=== PATIENT | female | born 1985 | race Caucasian/White ===

== ENCOUNTER 2019-01-23 17:05 | Observation (INO) ==
[~2019-01-23 17:05] MED LIST: METOCLOPRAMIDE 10 MG TABLET ONE
[2019-01-23] MEDS ORDERED: IOPAMIDOL 100 ML BOTTLE IV ONE ×2 (17:06→22:13)
[2019-01-23] MEDS ORDERED: 0.9 % SODIUM CHLORIDE 1,000 ML IV ONE (17:33)
[2019-01-23 18:14] LABS: Basophils # (Auto) 0.1 K/mcL (0.0-0.3); Basophils % (Auto) 0.5 % (0.0-2.0); Eosinophils # (Auto) 0 K/mcL (0.0-0.7); Eosinophils % (Auto) 0.3 % (0.0-7.0); Granulocytes % (Auto) 70.5 % (38.0-78.0); Hematocrit 41.9 % (36.0-48.0); Hemoglobin 14.1 g/dL (12.0-15.0); Lymphocytes # (Auto) 2.9 K/mcL (1.5-4.8); Lymphocytes % (Auto) 23.8 % (15.5-49.0); Mean Cell Volume 92.3 fL (80.0-100.0); Mean Corpuscular HGB Conc 33.7 g/dL (31.0-36.0); Mean Platelet Volume 10.2 fL (7.4-10.4); Monocytes # (Auto) 0.6 K/mcL (0.1-0.9); Monocytes % (Auto) 4.9 % (1.0-12.0); Platelet Count 260 K/mcL (140-440); RBC 4.54 M/mcL (4.00-5.20); Red Cell Distribution Width 12.9 % (11.5-14.5); WBC 12.3 K/mcL (4.5-11.0)
[2019-01-23 18:21] LABS: ALT/SGPT 11 U/l (0-40); AST/SGOT 15 U/l (0-37); Albumin/Globulin Ratio 1.4 (1.0-2.3); Alkaline Phosphatase 92 U/L (39-117); Bilirubin,Total 0.2 mg/dL (0.0-1.0); Blood Urea Nitrogen 11 mg/dl (6-20); Calcium 9.1 mg/dl (8.6-10.4); Carbon Dioxide 26 mmol/L (22-30); Chloride 100 mmol/L (96-108); Globulin 2.8 gm/dL (2.2-3.7); Glomerular Filtration Rate 121; Glucose 98 mg/dL (70-105); Potassium 3.6 mmol/L (3.3-5.1); Sodium 139 mmol/L (133-145)
[2019-01-23] MEDS ORDERED: 0.9 % SODIUM CHLORIDE 2,000 ML IV ONE (18:21)
[2019-01-23] MEDS ORDERED: ONDANSETRON 4 MG/2 ML VIAL IV ONE (18:21)
[2019-01-23] MEDS ORDERED: KETOROLAC 30 MG/ML VIAL IV ONE (18:21)
[2019-01-23] MEDS: HYDROmorphone 2 MG/ML VIAL IV PRN ×2 (19:01→21:30)
--- NOTE | 2019-01-23 19:32 | Cat Scan Report ---
CLINICAL INFORMATION: Right flank pain COMPARISON: None. TECHNIQUE: Following enteric contrast, 80 cc of Isovue-300 were injected intravenously, and 60 seconds later, 0.625 mm helical slices were obtained from the mid heart through the subtrochanteric regions. Following reconstruction, 2.5 mm sagittal, coronal and axial reformatted images were processed and reviewed at bone, lung and soft tissue windows. Five minutes later, 0.625 mm helical slices were obtained from the mid heart through the kidneys and viewed at soft tissue windows.The exam was performed using radiation dose optimization techniques including, but not limited to, automated exposure control, adjustment of the mA and/or kV according to patient size and use of iterative reconstruction technique. FINDINGS: Lung bases show no abnormality - no effusion. Visualized heart is unremarkable. Imaging of the abdomen show the gallbladder is surgically absent. Intrahepatic common bile ducts are normal caliber CBD is 5 mm. The liver, both kidneys, adrenal glands, spleen, pancreas, and aorta, including aortic branches, are normal in size, configuration and attenuation without focal lesion. Images of pelvis show normal-appearing uterus, ovaries and urinary bladder. Few sigmoid diverticuli noted, but no evidence of diverticulitis. Interestingly, there is a 5 mm appendicolith in the tip of the appendix. Appendix is normal diameters. No wall thickening. There is, however equivocal injection in the periappendiceal fat near the tip. Small/large bowel and stomach are normal. Bone windows show no osseous abnormality. IMPRESSION: 1. 5 mm appendicolith within the tip of the appendix with equivocal injection of periappendiceal fat. This could indicate early appendicitis. The appendix is located in the medial pericecal region. 2. No evidence of obstructing stone or hydronephrosis - both kidneys, upper collecting systems and ureters and urinary bladder are normal. Interpreted and Authenticated by: Leonel Su 01/23/19
[2019-01-23 20:07] LABS: Appearance,Urine HAZY; Bacteria,Urine 0 /hpf (0); Bilirubin,Urine NEG (NEG); Color,Urine YELLOW; Culture Indicated,Urine NO; Glucose,Urine (UA) NEGATIVE (NEG); Ketones,Urine NEG (NEG); Leukocyte Esterase,Urine NEG /uL (NEG); Nitrate,Urine NEG (NEG); Protein,Urine NEG (NEG); Specific Gravity,Urine 1.012 (1.000-1.035); Urine Amorphous Crystals MOD /hpf (0); Urine Blood NEG mg/dL (<0.03); Urine RBC 0 /hpf (0-1); Urine Squamous Epithelial Cell 3 /hpf (0-4); Urine WBC 0 /hpf (0-4); Urobilinogen,Urine NEG (NEG)
--- NOTE | 2019-01-23 20:24 | Emergency Department Note ---
Abdominal Pain HPI - General Chief Complaint: Abdominal Pain Stated Complaint: Vomiting, unable to pee, abd pain Time Seen by Provider: 01/23/19 18:21 Source: patient Mode of arrival: ambulatory Limitations: no limitations - History of Present Illness HPI Narrative: 33-year-old female with a 2-day history of suprapubic to right flank pain. She reports fever although she is not febrile here along with nausea vomiting She reports history of appendectomy - Related Data Previous Rx's Medication Instructions Recorded Promethazine [Phenergan] 12.5 mg PO Q4HP PRN 5 Days #30 tab 05/09/18 Allergies Allergy/AdvReac Type Severity Reaction Status Date / Time No Known Drug Allergies Allergy Verified 01/23/19 17:05 Review of Systems All systems ED: reviewed and negative except as stated. Abdominal Pain PMH - Past Medical History Medical history: Reports: kidney stones, migraine, other (ileus) Surgical history ED: Reports: (X2), cholecystectomy Psychiatric history: Reports: no psych history AED TRAINER history: Reports: non-contributory - Social History Smoking status: Current every day smoker Alcohol use: Reports: Rarely Drug use: Reports: none Physical Exam Overweight female no acute distress resting with heat pack on her belly. Normocephalic atraumatic. Conjunctive are clear sclerae nonicteric. No nasal discharge or congestion. Oropharynx with dry buccal mucosa. Neck is supple without lymphadenopathy thyromegaly or carotid bruit. Heart is regular rate and rhythm no murmur appreciated. Lungs clear to auscultation bilaterally without wheezes rales rhonchi or respiratory distress. Abdomen soft mildly tender in the right lower quadrant. Mild guarding. McBurney's point is equivocal. No pedal edema. +2 radial pulse. Alert oriented Limitations: no limitations Course Vital Signs Temperature 97.8 F 01/23/19 17:05 Pulse Rate 102 H 01/23/19 17:05 Respiratory Rate 18 01/23/19 17:05 Blood Pressure 147/92 01/23/19 17:05 Pulse Oximetry (%) 99 01/23/19 17:05 Temperature 97.8 F 01/23/19 17:05 Pulse Rate 102 H 01/23/19 17:05 Respiratory Rate 18 01/23/19 17:05 Blood Pressure 139/95 01/23/19 21:06 Pulse Oximetry (%) 100 01/23/19 21:06 Abdominal Pain - Lab Data Lab results reviewed: Yes I reviewed the patient's lab results. Result diagrams: 01/23/19 17:39 01/23/19 17:39 Lab Results 01/23/19 01/23/19 01/23/19 Range/Units 17:39 17:39 17:39 WBC 12.3 H (4.5-11.0) K/mcL RBC 4.54 (4.00-5.20) M/mcL Hgb 14.1 (12.0-15.0) g/dL Hct 41.9 (36.0-48.0) % MCV 92.3 (80.0-100.0) fL MCH 31.1 (26.0-34.0) pg MCHC 33.7 (31.0-36.0) g/dL RDW 12.9 (11.5-14.5) % Plt Count 260 (140-440) K/mcL MPV 10.2 (7.4-10.4) fL Gran % 70.5 (38.0-78.0) % Lymph % (Auto) 23.8 (15.5-49.0) % [place] % (Auto) 4.9 (1.0-12.0) % Eos % (Auto) 0.3 (0.0-7.0) % Baso % (Auto) 0.5 (0.0-2.0) % Gran # 8.7 H (1.8-8.0) K/mcL Lymph # (Auto) 2.9 (1.5-4.8) K/mcL [place] # (Auto) 0.6 (0.1-0.9) K/mcL Eos # (Auto) 0 (0.0-0.7) K/mcL Baso # (Auto) 0.1 (0.0-0.3) K/mcL VBG Lactic Acid (0.5-2.0) mmol/L Sodium 139 (133-145) mmol/L Potassium 3.6 (3.3-5.1) mmol/L Chloride 100 (96-108) mmol/L Carbon Dioxide 26 (22-30) mmol/L Anion Gap 13.0 (8-16) BUN 11 (6-20) mg/dl Creatinine 0.6 (0.6-1.1) mg/dl GFR Calculation 121 Glucose 98 (70-105) mg/dL Calcium 9.1 (8.6-10.4) mg/dl Total Bilirubin 0.2 (0.0-1.0) mg/dL AST 15 (0-37) U/l ALT 11 (0-40) U/l Alkaline Phosphatase 92 (39-117) U/L Total Protein 6.8 (5.9-8.4) gm/dL Albumin 4.0 (3.2-5.2) gm/dL Globulin 2.8 (2.2-3.7) gm/dL Albumin/Globulin Ratio 1.4 (1.0-2.3) Lipase 29 (7-60) U/L Urine Color Urine Appearance Urine pH (5.0-9.0) Ur Specific [place] (1.000-1.035) Urine Protein (NEG) mg/dL Urine Glucose (UA) (NEG) mg/dL Urine Ketones (NEG) mg/dL Urine Occult Blood (<0.03) mg/dL Urine Nitrate (NEG) Urine Bilirubin (NEG) mg/dL Urine Urobilinogen (NEG) mg/dL Ur Leukocyte Esterase (NEG) /uL Urine RBC (0-1) /hpf Urine WBC (0-4) /hpf Ur Squamous Epith Cells (0-4) /hpf Amorphous Crystals (0) /hpf Urine Bacteria (0) /hpf Ur Culture Indicated? 01/23/19 01/23/19 Range/Units 18:38 18:45 WBC (4.5-11.0) K/mcL RBC (4.00-5.20) M/mcL Hgb (12.0-15.0) g/dL Hct (36.0-48.0) % MCV (80.0-100.0) fL MCH (26.0-34.0) pg MCHC (31.0-36.0) g/dL RDW (11.5-14.5) % Plt Count (140-440) K/mcL MPV (7.4-10.4) fL Gran % (38.0-78.0) % Lymph % (Auto) (15.5-49.0) % [place] % (Auto) (1.0-12.0) % Eos % (Auto) (0.0-7.0) % Baso % (Auto) (0.0-2.0) % Gran # (1.8-8.0) K/mcL Lymph # (Auto) (1.5-4.8) K/mcL [place] # (Auto) (0.1-0.9) K/mcL Eos # (Auto) (0.0-0.7) K/mcL Baso # (Auto) (0.0-0.3) K/mcL VBG Lactic Acid 1.5 (0.5-2.0) mmol/L Sodium (133-145) mmol/L Potassium (3.3-5.1) mmol/L Chloride (96-108) mmol/L Carbon Dioxide (22-30) mmol/L Anion Gap (8-16) BUN (6-20) mg/dl Creatinine (0.6-1.1) mg/dl GFR Calculation Glucose (70-105) mg/dL Calcium (8.6-10.4) mg/dl Total Bilirubin (0.0-1.0) mg/dL AST (0-37) U/l ALT (0-40) U/l Alkaline Phosphatase (39-117) U/L Total Protein (5.9-8.4) gm/dL Albumin (3.2-5.2) gm/dL Globulin (2.2-3.7) gm/dL Albumin/Globulin Ratio (1.0-2.3) Lipase (7-60) U/L Urine Color Yellow Urine Appearance Hazy Urine pH 7.0 (5.0-9.0) Ur Specific [place] 1.012 (1.000-1.035) Urine Protein Neg (NEG) mg/dL Urine Glucose (UA) Negative (NEG) mg/dL Urine Ketones Neg (NEG) mg/dL Urine Occult Blood Neg (<0.03) mg/dL Urine Nitrate Neg (NEG) Urine Bilirubin Neg (NEG) mg/dL Urine Urobilinogen Neg (NEG) mg/dL Ur Leukocyte Esterase Neg (NEG) /uL Urine RBC 0 (0-1) /hpf Urine WBC 0 (0-4) /hpf Ur Squamous Epith Cells 3 (0-4) /hpf Amorphous Crystals Mod A (0) /hpf Urine Bacteria 0 (0) /hpf Ur Culture Indicated? No - Radiology Data Radiology results reviewed: Yes I reviewed the patient's radiology results. CT scan of the abdomen pelvis clearly shows mildly dilated appendix with appendi colith. I reviewed the scan with Dr. Su, radiologist Disposition Pt seen by CASH ON DELIVERY CLERK/PA only: No Clinical Impression: Acute appendicitis Qualifiers: Acute appendicitis type: unspecified acute appendicitis type Qualified Code(s): K35.80 - Unspecified acute appendicitis Summary: After initial evaluation we did start IV fluids pain medicine nausea medicine and work-up with CT scan and lab after getting studies back I discussed the case with Dr. Demario Young, general surgeon who agreed to accept the patient for further evaluation Disposition: Xfer As Inpt ([facility]) Condition: Fair
--- NOTE | 2019-01-23 21:10 | General Surg History&Physical ---
History of Present Illness Patient information: Note initiated : 01/23/19 at 9:08 pm Service Date, if different from initiated Date: [] Patient: Gloria Sharp a 33 y/o F admitted on for Vomiting, unable to pee, abd pain. Chief Complaint: [] HPI: Ms. Sharp is a 33 year old F admitted with acute appendicitis. The patient has a 2 day history of pain in her right lower quadrant and right flank. She has had continuous nausea with vomiting for 2 days. The pain has become progressively worse. She states that she had an appendectomy as a separate procedure. About 7 years ago, but CT of the abdomen and pelvis shows an appendiceal remnant with an appendicolith and periappendiceal tissue edema. Review of Systems - Constitutional headache(s) (history of chronic migraine headaches) - Gastrointestinal abdominal pain, nausea, vomiting Past History Past medical history: Chronic migraine headaches. No other medical illnesses Past surgical history: Laparoscopic cholecystectomy. 2. Questionable history of appendectomy Past family history: No chronic illnesses in the immediate family Past social history: Everyday. Tobacco use. Occasional alcohol use Denies drug use Medications and Allergies Home Medications Medication Instructions Recorded Confirmed Type Promethazine [Phenergan] 12.5 mg PO Q4HP PRN 5 Days #30 tab 05/09/18 Rx Allergies Allergy/AdvReac Type Severity Reaction Status Date / Time No Known Drug Allergies Allergy Verified 01/23/19 17:05 Exam Temp Pulse Resp BP Pulse Ox 97.8 F 102 H 18 139/95 100 01/23/19 17:05 01/23/19 17:05 01/23/19 17:05 01/23/19 21:06 01/23/19 21:06 - General physical appearance well developed, well nourished, moderate distress, moderate pain, obese - Eyes PERRL, normal ocular movement - ENT normal pinna, normal nares, normal mucosa, no hearing loss, no congestion - Head Head exam IM: Present: atraumatic, normocephalic - Neck no masses, no bruits, trachea midline, no lymphadenopathy, no venous distension - Cardiovascular Cardiovascular exam IM: Present: normal rate and rhythm - Respiratory normal expansion, normal respiratory effort, clear to percussion, clear to auscultation - Abdomen Abdomen: Present: soft, tender (tenderness with guarding and rebound right lower quadrant; good active bowel sounds), bowel sounds Hernia: Present: none - Genitourinary Present: normal external genitalia - Integumentary Present: no rash, no growths, no abnormal pigmentation - Neurologic Present: normal coordination, normal sensation - Musculoskeletal Present: normal gait, normal posture - Psychiatric Present: oriented to time, oriented to person, oriented to place, speech is normal, memory intact Assessment and Plan (1) Acute appendicitis Patient is admitted and will be hydrated. Zosyn 3.375 g IV every 6 hours. Schedule for appendectomy in the morning Status: Acute Qualifiers: Acute appendicitis type: unspecified acute appendicitis type Qualified Code(s): K35.80 - Unspecified acute appendicitis
[2019-01-23] MEDS: 0.9 % SODIUM CHLORIDE 1,000 ML IV SCH (22:31)
[2019-01-23 22:46] LABS: INR 0.9 (0.9-1.1); Prothrombin Time 12.4 sec (11.9-14.5)
[2019-01-23] MEDS: 0.9 % SODIUM CHLORIDE 10 ML SYRINGE IV SCH (23:00)
[2019-01-23] MEDS ORDERED: HYDROmorphone 2 MG/ML VIAL ONE (23:39)
[2019-01-24] MEDS: PIPERACILLIN SODIUM/TAZOBACTAM 3.375 GM in DEXTROSE 5% IN WATER 50 ML IV SCH ×6 (01:59→23:02)
[2019-01-24] MEDS ORDERED: HYDROmorphone 2 MG/ML VIAL ONE (02:01)
[2019-01-24] MEDS: 0.9 % SODIUM CHLORIDE 10 ML SYRINGE IV SCH ×5 (05:08→21:33)
[2019-01-24 05:11] LABS: Basophils # (Auto) 0.1 K/mcL (0.0-0.3); Basophils % (Auto) 0.5 % (0.0-2.0); Eosinophils # (Auto) 0.1 K/mcL (0.0-0.7); Eosinophils % (Auto) 0.8 % (0.0-7.0); Granulocytes % (Auto) 64.1 % (38.0-78.0); Hematocrit 40.4 % (36.0-48.0); Hemoglobin 13.4 g/dL (12.0-15.0); Lymphocytes # (Auto) 3.7 K/mcL (1.5-4.8); Lymphocytes % (Auto) 29.4 % (15.5-49.0); Mean Cell Volume 92.6 fL (80.0-100.0); Mean Corpuscular HGB Conc 33.3 g/dL (31.0-36.0); Mean Platelet Volume 9.7 fL (7.4-10.4); Monocytes # (Auto) 0.7 K/mcL (0.1-0.9); Monocytes % (Auto) 5.2 % (1.0-12.0); Platelet Count 244 K/mcL (140-440); RBC 4.36 M/mcL (4.00-5.20); WBC 12.7 K/mcL (4.5-11.0)
[2019-01-24 05:28] LABS: ALT/SGPT 12 U/l (0-40); AST/SGOT 9 U/l (0-37); Albumin 3.8 gm/dL (3.2-5.2); Albumin/Globulin Ratio 1.5 (1.0-2.3); Alkaline Phosphatase 75 U/L (39-117); Bilirubin,Direct < 0.2 mg/dL (0.0-0.3); Bilirubin,Total 0.2 mg/dL (0.0-1.0); Blood Urea Nitrogen 8 mg/dl (6-20); Calcium 8.2 mg/dl (8.6-10.4); Carbon Dioxide 24 mmol/L (22-30); Chloride 105 mmol/L (96-108); Globulin 2.6 gm/dL (2.2-3.7); Glomerular Filtration Rate 121; Glucose 99 mg/dL (70-105); Lactate Dehydrogenase 131 U/L (94-250); Magnesium 1.7 mg/dL (1.6-2.5); Phosphorous 3.8 mg/dL (2.7-4.5); Potassium 3.5 mmol/L (3.3-5.1); Sodium 142 mmol/L (133-145); Triglycerides 234 mg/dl (<150); Uric Acid 4.5 mg/dL (2.5-8.0)
[2019-01-24] MEDS: 0.9 % SODIUM CHLORIDE 1,000 ML IV SCH ×5 (05:54→22:14)
[2019-01-24] MEDS: HYDROmorphone 2 MG/ML VIAL IV PRN ×3 (07:51→20:20)
[2019-01-24] MEDS ORDERED: IPRATROPIUM/ALBUTEROL 3 ML AMPUL.NEB NEB ONE (08:26)
[2019-01-24] MEDS ORDERED: KETAMINE 100 MG/ML ML IV ONE (09:15)
[2019-01-24] MEDS ORDERED: SUCCINYLCHOLINE 20 MG/ML ML IV ONE (09:15)
[2019-01-24] MEDS ORDERED: ONDANSETRON 4 MG/2 ML VIAL IV ONE (09:15)
[2019-01-24] MEDS ORDERED: PROPOFOL 200 MG/20 ML VIAL IV ONE (09:15)
[2019-01-24] MEDS ORDERED: LIDOCAINE HCL/PF 100 MG/5 ML SYRINGE IV ONE (09:15)
[2019-01-24] MEDS ORDERED: MIDAZOLAM 5 MG/5 ML VIAL IV ONE (09:15)
[2019-01-24] MEDS ORDERED: DEXAMETHASONE 10 MG/ML VIAL IV ONE (09:15)
[2019-01-24] MEDS ORDERED: ATROPINE SULFATE 0.4 MG/ML VIAL IV PRN (09:46)
[2019-01-24] MEDS ORDERED: FLUMAZENIL 0.1 MG/ML ML IV PRN (09:46)
[2019-01-24] MEDS ORDERED: ACETAMINOPHEN 1,000 MG/100 ML BOTTLE IV ONE ×3 (09:46→22:12)
[2019-01-24] MEDS ORDERED: PROMETHAZINE 25 MG/ML VIAL IV PRN ×2 (09:46→10:17)
[2019-01-24] MEDS ORDERED: diphenhydrAMINE 50 MG/ML VIAL IV PRN (09:46)
[2019-01-24] MEDS ORDERED: METHOCARBAMOL 1,000 MG/10 ML VIAL IV PRN (09:46)
[2019-01-24] MEDS ORDERED: NALOXONE HCL 0.4 MG/ML VIAL IV PRN (09:46)
[2019-01-24] MEDS ORDERED: ePHEDrine 50 MG/ML AMPUL IV PRN (09:46)
[2019-01-24] MEDS ORDERED: ONDANSETRON 4 MG/2 ML VIAL IV PRN (09:46)
[2019-01-24] MEDS ORDERED: IPRATROPIUM/ALBUTEROL 3 ML AMPUL.NEB NEB PRN (09:46)
[2019-01-24] MEDS ORDERED: KETOROLAC 30 MG/ML VIAL IV PRN (09:46)
[2019-01-24] MEDS ORDERED: METOPROLOL TARTRATE 5 MG/5 ML VIAL IV PRN (09:46)
[2019-01-24] MEDS ORDERED: fentaNYL 100 MCG/2 ML VIAL IV PRN (09:46)
[2019-01-24] MEDS ORDERED: MEPERIDINE 25 MG/ML SYRINGE IV PRN (09:46)
--- NOTE | 2019-01-24 10:13 | Brief Operative Note ---
Date of procedure: 01/24/19 Pre-op diagnosis: acute appendicitis Post-op diagnosis: other (long appendiceal stump with appendicitis) Procedure: laparoscopic appendectomy Grafts/Implants: No Anesthesia: GETA Findings: very channing appendiceal stump with inflammation Complications: none Surgeon: Eros Young Estimated blood loss (cc): 10 Specimens Removed/Pathology: other (appendiceal remnant) Condition: stable Disposition: PACU
[2019-01-24] MEDS: ACETAMINOPHEN 1,000 MG in PREMIX 1 BAG IV SCH ×2 (16:51→22:15)
[2019-01-24] MEDS: oxyCODONE HCL 5 MG TABLET PO PRN (18:06)
[2019-01-24] MEDS ORDERED: NICOTINE 7 MG PATCH TOPICAL ONE (18:42)
[2019-01-25] MEDS ORDERED: ACETAMINOPHEN 1,000 MG/100 ML BOTTLE IV ONE ×2 (04:39→11:04)
[2019-01-25] MEDS: ACETAMINOPHEN 1,000 MG in PREMIX 1 BAG IV SCH ×2 (04:43→11:14)
[2019-01-25] MEDS: oxyCODONE HCL 5 MG TABLET PO PRN ×5 (04:50→23:59)
[2019-01-25] MEDS: PIPERACILLIN SODIUM/TAZOBACTAM 3.375 GM in DEXTROSE 5% IN WATER 50 ML IV SCH ×4 (05:37→23:47)
[2019-01-25] MEDS: 0.9 % SODIUM CHLORIDE 10 ML SYRINGE IV SCH ×5 (05:38→22:11)
[2019-01-25 06:11] LABS: Basophils # (Auto) 0 K/mcL (0.0-0.3); Basophils % (Auto) 0 % (0.0-2.0); Eosinophils # (Auto) 0 K/mcL (0.0-0.7); Eosinophils % (Auto) 0 % (0.0-7.0); Granulocytes % (Auto) 89.8 % (38.0-78.0); Hematocrit 42.4 % (36.0-48.0); Lymphocytes # (Auto) 1.5 K/mcL (1.5-4.8); Lymphocytes % (Auto) 7.1 % (15.5-49.0); Mean Cell Volume 93.4 fL (80.0-100.0); Mean Platelet Volume 9.5 fL (7.4-10.4); Monocytes # (Auto) 0.6 K/mcL (0.1-0.9); Monocytes % (Auto) 3.1 % (1.0-12.0); Platelet Count 297 K/mcL (140-440); RBC 4.54 M/mcL (4.00-5.20); Red Cell Distribution Width 12.8 % (11.5-14.5); WBC 20.6 K/mcL (4.5-11.0)
[2019-01-25 06:52] LABS: ALT/SGPT 15 U/l (0-40); AST/SGOT 10 U/l (0-37); Albumin/Globulin Ratio 1.4 (1.0-2.3); Alkaline Phosphatase 87 U/L (39-117); Bilirubin,Direct < 0.2 mg/dL (0.0-0.3); Bilirubin,Total 0.2 mg/dL (0.0-1.0); Blood Urea Nitrogen 8 mg/dl (6-20); Calcium 9.2 mg/dl (8.6-10.4); Carbon Dioxide 23 mmol/L (22-30); Chloride 103 mmol/L (96-108); Globulin 2.8 gm/dL (2.2-3.7); Glomerular Filtration Rate 121; Glucose 134 mg/dL (70-105); Lactate Dehydrogenase 148 U/L (94-250); Magnesium 1.9 mg/dL (1.6-2.5); Phosphorous 2.6 mg/dL (2.7-4.5); Potassium 4.1 mmol/L (3.3-5.1); Sodium 139 mmol/L (133-145); Triglycerides 201 mg/dl (<150); Uric Acid 3.3 mg/dL (2.5-8.0)
[2019-01-25] MEDS: HYDROmorphone 2 MG/ML VIAL IV PRN ×3 (07:03→22:07)
--- NOTE | 2019-01-25 09:23 | Operative Note ---
DATE OF OPERATION: 01/24/2019 PREOPERATIVE DIAGNOSIS: Acute appendicitis. POSTOPERATIVE DIAGNOSIS: Long appendiceal stump with appendicitis. PROCEDURE: Laparoscopic appendectomy. SURGEON: Eros Young M.D. FINDINGS: A very long appendiceal stump with acute suppurative inflammation. DESCRIPTION OF PROCEDURE: Under general anesthesia, the patient's abdomen was prepped and draped in a sterile field. A timeout procedure was carried out as per protocol. Supraumbilical incision was made and Veress needle was inserted uneventfully. Abdomen was insufflated with 2.5 liters of CO2. A 12 mm port was placed. Laparoscope was placed. Under videoscopic guidance, a 5 mm port was placed in the suprapubic midline and a 12 mm port in the left lower quadrant. The patient was placed in deep Trendelenburg position and rotated to the left. The cecum was mobilized. The junction of the base of the appendix with the cecum was noted. This was grasped with a self-retaining grasper. Dissection revealed that the appendix had been previously stapled. There were duane in the end of a stump that was probably about slightly more than one half of the normal length of the appendix. That segment was inflamed. Using sharp and blunt dissection, the adhesions to the appendix were taken down. The residual appendix was then removed using an Endo MAHAD stapler across the base. Hemostasis was achieved with electrocautery. The residual appendix was placed in an Endopouch and retrieved. Irrigation was carried out once more. There was no bleeding. There was no purulence. CO2 was allowed to escape from the abdomen and the ports were removed. The incisions and the fascia at the supraumbilical midline were closed with interrupted 0 Vicryl. The skin incisions were closed with duane. The patient tolerated the procedure well. She was awakened from anesthesia uneventfully, transferred to a bed, and taken to the postanesthetic care unit in stable, satisfactory condition. LCS:devin Job ID: [id number] Doc ID: [id number] Eros Young M.D.
[2019-01-25] MEDS ORDERED: NICOTINE 7 MG PATCH TOPICAL SCH (10:00)
[2019-01-25 10:01] LABS: C-Reactive Protein 0.7 mg/dl (0.0-0.8)
[2019-01-25] MEDS: ONDANSETRON 4 MG/2 ML VIAL IV PRN ×2 (11:50→19:13)
--- NOTE | 2019-01-25 14:09 | Cat Scan Report ---
CLINICAL INFORMATION: Recent appendectomy. Elevated white blood cell count evaluate for stump leak COMPARISON: Preoperative abdomen and pelvic CT 01/23/2019 TECHNIQUE: Following enteric contrast, 80 cc of Isovue-300 were injected intravenously, and 60 seconds later, 0.625 mm helical slices were obtained from the mid heart through the subtrochanteric regions. Following reconstruction, 2.5 mm sagittal, coronal and axial reformatted images were processed and reviewed at bone, lung and soft tissue windows. Five minutes later, 0.625 mm helical slices were obtained from the mid heart through the kidneys and viewed at soft tissue windows.The exam was performed using radiation dose optimization techniques including, but not limited to, automated exposure control, adjustment of the mA and/or kV according to patient size and use of iterative reconstruction technique. FINDINGS: Lung bases show diffuse groundglass airspace disease in the lower lobe which is new. There is no definite pleural effusion. Visualized heart is normal. Abdominal images show the gallbladder is surgically absent. Intrahepatic and extrahepatic ducts are normal - CBD is 6 mm. The liver, both kidneys, adrenal glands, spleen, pancreas, and aorta, including aortic branches, are normal in size, configuration and attenuation without focal lesion. Pelvic images show uterus, both ovaries and urinary bladder are unremarkable - as before. Appendectomy changes are noted. The postoperative site appears normal without evidence of stump leak. There is no free fluid or free air. The stomach, small /large bowel are normal. The surgical incision is unremarkable - postoperative seroma or abscess. Bone windows show no osseous abnormality. IMPRESSION: 1. Appendectomy stump is normal. No evidence of stump leak or other intra-abdominal/pelvic abnormality. 2. Vague groundglass airspace disease in the lung bases - new from the preoperative study. Suggest chest x-ray to evaluate for bilateral infiltrates Interpreted and Authenticated by: Leonel Su 01/25/19
[2019-01-25] MEDS: NICOTINE 14 MG PATCH TOPICAL SCH (14:45)
--- NOTE | 2019-01-25 14:52 | General Surgery Progress Note ---
Subjective Patient reports: feels better, pain is less, flatus, no bowel movement, afebrile Narrative: Note initiated : 01/25/19 at 2:50 pm Service Date, if different from initiated Date: [] Patient: Gloria Sharp a 33 y/o F admitted on for Vomiting, unable to pee, abd pain. Chief Complaint: [Patient is clinically well. She states that she has less pain. She has some discomfort in the portal sites in her lower abdomen. She denies nausea. She has been afebrile. Her white count is 20.6, hemoglobin 14, sedimentation rate 18, CRP 0.7, lactic acid 4.1, phosphorus is 2.6. Because of the elevated white blood count. A CT of abdomen and pelvis was done to make sure there was no visceral injury or leak. This was normal without any evidence of intraperitoneal pathology. However, she has groundglass appearance of both lung bases.] Objective Temp Pulse Resp BP Pulse Ox 97.7 F 96 H 18 135/79 98 01/25/19 11:16 01/25/19 11:16 01/25/19 11:16 01/25/19 11:16 01/25/19 11:16 - Additional Data Intake & Output - Last 24 hours: Intake & Output 01/23/19 01/24/19 01/25/19 01/26/19 05:59 05:59 05:59 05:59 Intake Total 6340 4640 450 Output Total 1100 5325 1300 Balance 5240 -685 -850 Weight 243 lb 247 lb 8 oz - General physical appearance well developed, well nourished, no distress - Eyes PERRL, normal ocular movement - ENT normal pinna, normal nares, normal mucosa, no hearing loss, no congestion - Neck no masses, no bruits, trachea midline, no lymphadenopathy, no venous distension - Respiratory normal expansion, normal respiratory effort, clear to auscultation - Cardiovascular Cardiovascular exam: Present: normal rate and rhythm, RRR, +S1, +S2. Absent: JVD, tachycardia - Abdomen tender (tenderness around port sites. Otherwise benign abdomen) - Integumentary no rash, no growths, no abnormal pigmentation - Neurologic normal coordination, normal sensation - Musculoskeletal normal gait, normal posture - Psychiatric oriented to time, oriented to person, oriented to place, speech is normal, me cassia intact - Labs 01/25/19 04:52 01/25/19 04:52 Diabetes panel 01/25/19 Range/Units 04:52 Sodium 139 (133-145) mmol/L Potassium 4.1 (3.3-5.1) mmol/L Chloride 103 (96-108) mmol/L Carbon Dioxide 23 (22-30) mmol/L BUN 8 (6-20) mg/dl Creatinine 0.6 (0.6-1.1) mg/dl Glucose 134 H (70-105) mg/dL Calcium 9.2 (8.6-10.4) mg/dl AST 10 (0-37) U/l ALT 15 (0-40) U/l Alkaline Phosphatase 87 (39-117) U/L Total Protein 6.8 (5.9-8.4) gm/dL Albumin 4.0 (3.2-5.2) gm/dL Triglycerides 201 H (<150) mg/dl Calcium panel 01/25/19 Range/Units 04:52 Calcium 9.2 (8.6-10.4) mg/dl Phosphorus 2.6 L (2.7-4.5) mg/dL Albumin 4.0 (3.2-5.2) gm/dL Pituitary panel 01/25/19 Range/Units 04:52 Sodium 139 (133-145) mmol/L Potassium 4.1 (3.3-5.1) mmol/L Chloride 103 (96-108) mmol/L Carbon Dioxide 23 (22-30) mmol/L BUN 8 (6-20) mg/dl Creatinine 0.6 (0.6-1.1) mg/dl Glucose 134 H (70-105) mg/dL Calcium 9.2 (8.6-10.4) mg/dl Adrenal panel 01/25/19 Range/Units 04:52 Sodium 139 (133-145) mmol/L Potassium 4.1 (3.3-5.1) mmol/L Chloride 103 (96-108) mmol/L Carbon Dioxide 23 (22-30) mmol/L BUN 8 (6-20) mg/dl Creatinine 0.6 (0.6-1.1) mg/dl Glucose 134 H (70-105) mg/dL Calcium 9.2 (8.6-10.4) mg/dl Total Bilirubin 0.2 (0.0-1.0) mg/dL AST 10 (0-37) U/l ALT 15 (0-40) U/l Alkaline Phosphatase 87 (39-117) U/L Total Protein 6.8 (5.9-8.4) gm/dL Albumin 4.0 (3.2-5.2) gm/dL Assessment and Plan (1) Acute appendicitis Status: Resolved Current Visit: Yes (2) Leukocytosis Status: Acute Assessment and plan: Follow-up chest x-ray in the morning. Start conspire care every 2 hours. Continue Zosyn Current Visit: Yes - Time Spent With Patient Total time spent is greater than 50% in coordination of care (as documented) at patient's floor/unit and/or counseling patient:
--- NOTE | 2019-01-25 15:02 | XRay Report ---
CLINICAL INFORMATION: Increased white blood cell count COMPARISON: 03/01/2017 FINDINGS: Cardiomediastinal silhouette and pulmonary vessels are normal. Vague generalized increased density throughout both lungs may merely represent an artifact due to overlying breast tissue. No effusions. Soft tissues normal IMPRESSION: Vague increased density throughout both lungs may be artifact related overlying soft tissue. Suggest: two-view upright chest x-ray. Interpreted and Authenticated by: Leonel Su 01/25/19
[2019-01-25 16:37] LABS: Basophils # (Auto) 0 K/mcL (0.0-0.3); Basophils % (Auto) 0.2 % (0.0-2.0); Eosinophils # (Auto) 0 K/mcL (0.0-0.7); Eosinophils % (Auto) 0 % (0.0-7.0); Hematocrit 39.3 % (36.0-48.0); Hemoglobin 13.2 g/dL (12.0-15.0); Lymphocytes # (Auto) 2.3 K/mcL (1.5-4.8); Lymphocytes % (Auto) 13.2 % (15.5-49.0); Mean Cell Volume 92.5 fL (80.0-100.0); Mean Corpuscular HGB Conc 33.7 g/dL (31.0-36.0); Mean Platelet Volume 10.1 fL (7.4-10.4); Monocytes # (Auto) 0.8 K/mcL (0.1-0.9); Monocytes % (Auto) 4.6 % (1.0-12.0); Platelet Count 243 K/mcL (140-440); RBC 4.25 M/mcL (4.00-5.20); Red Cell Distribution Width 13.2 % (11.5-14.5); WBC 17.5 K/mcL (4.5-11.0)
[2019-01-25] MEDS: 0.9 % SODIUM CHLORIDE 1,000 ML IV SCH (18:03)
[2019-01-26] MEDS: HYDROmorphone 2 MG/ML VIAL IV PRN (02:53)
[2019-01-26] MEDS: PIPERACILLIN SODIUM/TAZOBACTAM 3.375 GM in DEXTROSE 5% IN WATER 50 ML IV SCH ×2 (06:02→13:33)
[2019-01-26] MEDS: 0.9 % SODIUM CHLORIDE 10 ML SYRINGE IV SCH ×2 (06:03→12:46)
[2019-01-26 06:29] LABS: Basophils # (Auto) 0 K/mcL (0.0-0.3); Basophils % (Auto) 0.3 % (0.0-2.0); Eosinophils # (Auto) 0 K/mcL (0.0-0.7); Eosinophils % (Auto) 0.2 % (0.0-7.0); Granulocytes % (Auto) 68.4 % (38.0-78.0); Hematocrit 36.7 % (36.0-48.0); Hemoglobin 12.4 g/dL (12.0-15.0); Lymphocytes # (Auto) 3.7 K/mcL (1.5-4.8); Lymphocytes % (Auto) 25.9 % (15.5-49.0); Mean Cell Volume 92.9 fL (80.0-100.0); Mean Corpuscular HGB Conc 33.9 g/dL (31.0-36.0); Mean Platelet Volume 9.7 fL (7.4-10.4); Monocytes # (Auto) 0.8 K/mcL (0.1-0.9); Monocytes % (Auto) 5.2 % (1.0-12.0); Platelet Count 231 K/mcL (140-440); RBC 3.95 M/mcL (4.00-5.20); WBC 14.4 K/mcL (4.5-11.0)
[2019-01-26] MEDS: 0.9 % SODIUM CHLORIDE 1,000 ML IV SCH ×3 (06:31→15:24)
[2019-01-26] MEDS: oxyCODONE HCL 5 MG TABLET PO PRN (06:31)
[2019-01-26] MEDS: NICOTINE 14 MG PATCH TOPICAL SCH (08:29)
[2019-01-26] MEDS: ONDANSETRON 4 MG/2 ML VIAL IV PRN (08:29)
--- NOTE | 2019-01-26 14:50 | Surgical Pathology Report ---
HISTOLOGY SPECIMEN MICROSCOPIC DIAGNOSIS APPENDIX, PARTIAL APPENDECTOMY: -- NO DIAGNOSTIC ALTERATIONS; SEE COMMENT. -- NO ACUTE APPENDICITIS OR MALIGNANCY IDENTIFIED. (DMT:sln) COMMENT: The patient's prior appendectomy ([id number]; 11/29/2017) with early fibrous obliteration of the appendiceal tip is noted. The current portion of residual proximal appendix is entirely submitted and no acute inflammation/appendicitis is seen. If the patient's symptoms persist, then additional causes should be considered. Clinical correlation is necessary. PROCEDURAL IMPRESSION Acute appendicitis. GROSS DESCRIPTION Received in formalin designated appendix, is a 1.4 cm long by up to 0.6 cm in diameter purple-biswas portion of appendix which has been stapled at both ends. The ends are differentially inked. Totally submitted - one cassette. (STS:sln) Electronically Signed by: Levi Martin M.D.
--- NOTE | 2019-01-26 15:44 | Discharge Summary ---
Providers - Providers Patient information: Note initiated : 01/26/19 at 3:40 pm Service Date, if different from initiated Date: [] Patient: Gloria Sharp 33 y/o F admitted on 01/25/19 for Vomiting, unable to pee, abd pain. Chief Complaint: [] Date of admission: 01/23/19 Discharge date: 01/26/19 Attending physician: Eros Young Hospitalization Hospital course: 33-year-old female admitted with right lower quadrant pain, normal white blood count, nausea with vomiting. She has a history of having had appendectomy about [address] of the abdomen showed dilated edematous appendix with appendi colith in the tip and some periappendiceal tissue edema. She underwent laparoscopic appendectomy on 24 January. This showed a partially resected appendix with about one half of the appendix. Remaining with visible duane at the tip. There was inflammation of the residual stump. Appendectomy was done Uneventfully. On the first postoperative day, her white blood count was up to 20,000. However, her sedimentation rate and CRP were normal and she was afebrile. Her lactate was 4.1. CT of abdomen and pelvis were done and was unremarkable except for some changes at the lung base. Chest x-ray was unremarkable. Today her white blood count is down to 14.4. She is doing well. She is tolerating a regular diet and is stable for discharge. Discharge diagnosis: acute appendicitis Reason for admission: , abdominal pain, nausea and vomiting Procedures: Laparoscopic appendectomy Pertinent studies/significant findings: CT of abdomen and pelvis with contrast 2 Complications: None Exam Temp Pulse Resp BP Pulse Ox 97.5 F 64 18 125/79 96 01/26/19 12:00 01/26/19 12:00 01/26/19 12:00 01/26/19 12:00 01/26/19 12:00 - General physical appearance well developed, well nourished, no distress - Eyes PERRL, normal ocular movement - ENT normal pinna, normal nares, normal mucosa, no hearing loss, no congestion - Head Head exam IM: Present: atraumatic, normocephalic - Neck no masses, no bruits, trachea midline, no lymphadenopathy, no venous distension - Cardiovascular Cardiovascular exam IM: Present: normal rate and rhythm - Respiratory normal expansion, normal respiratory effort, clear to percussion, clear to auscultation - Abdomen Abdomen: Present: soft, tender (mild tenderness around port sites, otherwise benign Abdomen), bowel sounds Hernia: Present: none - Genitourinary Present: normal external genitalia - Integumentary Present: no rash, no growths, no abnormal pigmentation - Neurologic Present: normal coordination, normal sensation - Musculoskeletal Present: normal gait, normal posture - Psychiatric Present: oriented to time, oriented to person, oriented to place, speech is normal, memory intact Discharge Plan - Patient/Caregiver Discharge Instructions Activity: increase activity as tolerated Diet: Regular Diet Prescriptions: Ciprofloxacin [Cipro] 500 mg PO BID #10 tab oxyCODONE HCL/ACETAMINOPHEN [Endocet 10-325 mg Tablet] 1 tab PO Q4H PRN #30 tab PRN Reason: Pain - Follow up Plan Follow up with: Eros Young MD [Physician] - 02/08/19 8:45 am Disposition: Home, Self-Care Prognosis: Good Rehab Potential: Good I certify that the patient requires SNF services.: No Overall status at discharge: patient is progressing back to baseline Pending Studies Resuscitation Status Full Code Diet Regular Diet Start Sun Jan 24 1543 Hydromorphone HCl (Dilaudid) 1 mg IV Q2HP PRN PRN Reason: PAIN LEVEL > 6 Last Admin: 01/26/19 02:53 Dose: 1 mg Documented by: Admin: 01/25/19 22:07 Dose: 1 mg Documented by: Admin: 01/25/19 15:35 Dose: 1 mg Documented by: Admin: 01/25/19 07:03 Dose: 1 mg Documented by: Admin: 01/24/19 20:20 Dose: 1 mg Documented by: Admin: 01/24/19 13:29 Dose: 1 mg Documented by: Admin: 01/24/19 07:51 Dose: 1 mg Documented by: RAA Piperacillin Sod/Tazobactam (Sod 3.375 gm/ Dextrose) 50 mls @ 100 mls/hr IV Q6H [facility]; Protocol Last Infusion: 01/26/19 14:35 Dose: 0 mls/hr Documented by: Admin: 01/26/19 13:33 Dose: 100 mls/hr Documented by: Infusion: 01/26/19 06:32 Dose: 0 mls/hr Documented by: Admin: 01/26/19 06:02 Dose: 100 mls/hr Documented by: Infusion: 01/26/19 00:17 Dose: 100 mls/hr Documented by: Admin: 01/25/19 23:47 Dose: 100 mls/hr Documented by: Infusion: 01/25/19 18:33 Dose: 100 mls/hr Documented by: Admin: 01/25/19 18:03 Dose: 100 mls/hr Documented by: Infusion: 01/25/19 14:50 Dose: 0 mls/hr Documented by: Admin: 01/25/19 11:51 Dose: 100 mls/hr Documented by: Infusion: 01/25/19 06:26 Dose: 0 mls/hr Documented by: Admin: 01/25/19 05:37 Dose: 100 mls/hr Documented by: Infusion: 01/24/19 23:32 Dose: 100 mls/hr Documented by: Admin: 01/24/19 23:02 Dose: 100 mls/hr Documented by: Infusion: 01/24/19 21:34 Dose: 0 mls/hr Documented by: Admin: 01/24/19 17:53 Dose: 100 mls/hr Documented by: Infusion: 01/24/19 13:47 Dose: 100 mls/hr Documented by: Admin: 01/24/19 13:17 Dose: 100 mls/hr Documented by: Infusion: 01/24/19 05:54 Dose: 0 mls/hr Documented by: Admin: 01/24/19 05:08 Dose: 100 mls/hr Documented by: Admin: 01/24/19 01:59 Dose: Not Given Documented by: Infusion: 01/24/19 01:30 Dose: 0 mls/hr Documented by: Admin: 01/24/19 00:00 Dose: 100 mls/hr Documented by: JOHANNA Sodium Chloride (Sodium Chloride 0.9%) 1,000 mls @ 75 mls/hr IV .[id number] WENDY Last Admin: 01/26/19 15:24 Dose: Not Given Documented by: Admin: 01/26/19 10:44 Dose: 75 mls/hr Documented by: Infusion: 01/26/19 07:23 Dose: 75 mls/hr Documented by: Admin: 01/26/19 06:31 Dose: Not Given Documented by: Admin: 01/25/19 18:03 Dose: 75 mls/hr Documented by: Infusion: 01/25/19 18:03 Dose: 75 mls/hr Documented by: Admin: 01/24/19 22:14 Dose: 75 mls/hr Documented by: Infusion: 01/24/19 22:14 Dose: 75 mls/hr Documented by: Admin: 01/24/19 11:07 Dose: 75 mls/hr Documented by: ARA Nicotine (Nicoderm) 14 mg TOPICAL DAILY@1000 [facility] Last Admin: 01/26/19 08:29 Dose: 14 mg Documented by: Admin: 01/25/19 14:45 Dose: 14 mg Documented by: [email or web address] Ondansetron HCl (Zofran) 4 mg IV Q4HP PRN PRN Reason: Nausea And Vomiting Last Admin: 01/26/19 08:29 Dose: 4 mg Documented by: Admin: 01/25/19 19:13 Dose: 4 mg Documented by: Admin: 01/25/19 11:50 Dose: 4 mg Documented by: SARAN Oxycodone HCl (Roxicodone) 10 mg PO Q4HP PRN PRN Reason: PAIN LEVEL 3-6 Last Admin: 01/26/19 06:31 Dose: 10 mg Documented by: Admin: 01/25/19 23:59 Dose: 10 mg Documented by: Admin: 01/25/19 19:13 Dose: 10 mg Documented by: Admin: 01/25/19 15:35 Dose: 10 mg Documented by: Admin: 01/25/19 11:13 Dose: 10 mg Documented by: Admin: 01/25/19 04:50 Dose: 10 mg Documented by: Admin: 01/24/19 18:06 Dose: 10 mg Documented by: ARA Sodium Chloride (Saline Flush) 10 ml IV Q8 WENDY Last Admin: 01/26/19 12:46 Dose: Not Given Documented by: Admin: 01/26/19 06:03 Dose: Not Given Documented by: Admin: 01/25/19 22:11 Dose: Not Given Documented by: Admin: 01/25/19 14:50 Dose: Not Given Documented by: Admin: 01/25/19 05:38 Dose: Not Given Documented by: Admin: 01/24/19 21:33 Dose: Not Given Documented by: Admin: 01/24/19 13:30 Dose: Not Given Documented by: ARA Shift Summary 01/26/19 04:51 Shift Summary by Lori Herr Slept most of the night. Taking Roxycodone q 4-5 hrs w/ IV dilaudid at the 3 hr marilee. UP ad kelsie in room to BR or BSC; voiding well. NO BM, but passing gas. Dressings CDI x3. tolerating Reg diet w/o nausea. Hoping to go home today. Initialized on 01/26/19 04:51 - END OF NOTE
== END 2019-01-26 16:00 | disposition home or self-care (01) ==
LOC: ED 17:05 → MEDSUR 22:12 → MEDSUROUT 22:12 → MEDSUR 22:18
PROVIDERS: ADMIT Family Medicine Adult Medicine; ATTEND Family Medicine Adult Medicine
PROC: LAPAPPY (ICD-10-PCS; 2019-01-24 09:08)

== ENCOUNTER 2019-02-10 11:45 | Inpatient (IN) ==
[2019-02-08 10:41] LABS: Basophils # (Auto) 0 K/mcL (0.0-0.3); Basophils % (Auto) 0.3 % (0.0-2.0); Eosinophils # (Auto) 0.2 K/mcL (0.0-0.7); Eosinophils % (Auto) 1.7 % (0.0-7.0); Granulocytes % (Auto) 75.2 % (38.0-78.0); Hematocrit 40.6 % (36.0-48.0); Hemoglobin 13.8 g/dL (12.0-15.0); Lymphocytes # (Auto) 2.6 K/mcL (1.5-4.8); Lymphocytes % (Auto) 18.7 % (15.5-49.0); Mean Cell Volume 91.7 fL (80.0-100.0); Mean Corpuscular HGB Conc 33.9 g/dL (31.0-36.0); Mean Platelet Volume 9.8 fL (7.4-10.4); Monocytes # (Auto) 0.6 K/mcL (0.1-0.9); Monocytes % (Auto) 4.1 % (1.0-12.0); Platelet Count 239 K/mcL (140-440); RBC 4.43 M/mcL (4.00-5.20); Red Cell Distribution Width 13.1 % (11.5-14.5); WBC 13.7 K/mcL (4.5-11.0)
[2019-02-08] MEDS: PROMETHAZINE 25 MG/ML VIAL IV PRN ×3 (10:45→21:17)
[2019-02-08] MEDS: 0.9 % SODIUM CHLORIDE 1,000 ML IV SCH ×6 (10:45→23:33)
[2019-02-08 10:58] LABS: Lipase 21 U/L (7-60)
[2019-02-08 11:08] LABS: ALT/SGPT 11 U/l (0-40); AST/SGOT 11 U/l (0-37); Albumin 3.7 gm/dL (3.2-5.2); Albumin/Globulin Ratio 1.3 (1.0-2.3); Alkaline Phosphatase 83 U/L (39-117); Amylase 29 U/L (28-100); Bilirubin,Direct < 0.2 mg/dL (0.0-0.3); Bilirubin,Total 0.3 mg/dL (0.0-1.0); Blood Urea Nitrogen 9 mg/dl (6-20); Calcium 8.8 mg/dl (8.6-10.4); Carbon Dioxide 21 mmol/L (22-30); Chloride 102 mmol/L (96-108); Globulin 2.9 gm/dL (2.2-3.7); Glomerular Filtration Rate 114; Glucose 120 mg/dL (70-105); Lactate Dehydrogenase 172 U/L (94-250); Magnesium 1.7 mg/dL (1.6-2.5); Phosphorous 2.6 mg/dL (2.7-4.5); Potassium 4.1 mmol/L (3.3-5.1); Sodium 138 mmol/L (133-145); Triglycerides 198 mg/dl (<150); Uric Acid 5.5 mg/dL (2.5-8.0)
[2019-02-08 11:20] LABS: Erythrocyte Sedimentation Rate 16 mm/hr (0-20)
[2019-02-08] MEDS: 0.9 % SODIUM CHLORIDE 10 ML SYRINGE IV SCH ×2 (14:45→22:39)
[2019-02-08] MEDS: PANTOPRAZOLE 40 MG TABLET PO SCH (17:13)
[2019-02-09] MEDS: 0.9 % SODIUM CHLORIDE 10 ML SYRINGE IV SCH ×3 (05:56→23:16)
[2019-02-09] MEDS: PANTOPRAZOLE 40 MG TABLET PO SCH ×2 (06:57→16:56)
[2019-02-09] MEDS: 0.9 % SODIUM CHLORIDE 1,000 ML IV SCH ×2 (09:37→21:10)
[2019-02-09] MEDS: PROMETHAZINE 25 MG/ML VIAL IV PRN ×3 (12:00→21:13)
[2019-02-09] MEDS: fentaNYL 100 MCG/2 ML VIAL IV PRN ×3 (13:23→21:11)
[2019-02-09] MEDS: DICYCLOMINE 20 MG TABLET PO SCH ×3 (13:24→21:11)
--- NOTE | 2019-02-09 15:52 | General Surgery Progress Note ---
Subjective Patient reports: still having pain, diarrhea, nausea, vomiting, afebrile Narrative: Note initiated : 02/09/19 at 3:50 pm Service Date, if different from initiated Date: [] Patient: Gloria Sharp a 34 y/o F admitted on 02/08/19 for Gastroenteritis . 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 Around midday, she developed nausea and vomiting with diarrhea. She still complains of lower abdominal diffuse discomfort, though she does not appear to be having any discomfort Clinically. She also complains of dizziness. She has been afebrile, vital signs stable.] Objective Temp Pulse Resp BP Pulse Ox 98.1 F 72 18 133/77 97 02/09/19 12:00 02/09/19 12:00 02/09/19 12:00 02/09/19 12:00 02/09/19 12:00 - Additional Data Intake & Output - Last 24 hours: Intake & Output 02/07/19 02/08/19 02/09/19 02/10/19 05:59 05:59 05:59 05:59 Intake Total 5560 1640 Output Total 100 Balance 5560 1540 Weight 242 lb - General physical appearance well developed, well nourished, no distress, moderate pain - Eyes PERRL, normal ocular movement - ENT normal pinna, normal nares, normal mucosa, no hearing loss, no congestion - Neck no masses, no bruits, trachea midline, no lymphadenopathy, no venous distension - Respiratory normal expansion, normal respiratory effort, clear to auscultation - Cardiovascular Cardiovascular exam: Present: normal rate and rhythm, RRR, +S1, +S2. Absent: JVD, tachycardia - Abdomen non tender, bowel sounds (present), surgical scars (none), masses (none) - Integumentary no rash, no growths, no abnormal pigmentation - Neurologic normal coordination, normal sensation - Musculoskeletal normal gait, normal posture - Psychiatric oriented to time, oriented to person, oriented to place, speech is normal, memory intact - Labs 02/08/19 10:07 02/08/19 10:07 Assessment and Plan (1) Nausea and vomiting in adult Status: Acute Assessment and plan: Scopolamine transdermal every 72 hours Current Visit: Yes (2) Chronic generalized abdominal pain Status: Acute Assessment and plan: Dicyclomine 20 mg 3 times daily Current Visit: Yes - Time Spent With Patient Total time spent is greater than 50% in coordination of care (as documented) at patient's floor/unit and/or counseling patient:
[2019-02-10] MEDS: fentaNYL 100 MCG/2 ML VIAL IV PRN ×4 (03:11→23:40)
[2019-02-10] MEDS: 0.9 % SODIUM CHLORIDE 10 ML SYRINGE IV SCH ×3 (05:42→21:14)
[2019-02-10] MEDS: 0.9 % SODIUM CHLORIDE 1,000 ML IV SCH ×4 (07:05→21:53)
[2019-02-10] MEDS: PANTOPRAZOLE 40 MG TABLET PO SCH ×2 (07:26→17:08)
[2019-02-10] MEDS: DICYCLOMINE 20 MG TABLET PO SCH ×4 (09:05→21:13)
[~2019-02-10 11:45] MED LIST changes: +DICYCLOMINE 10 MG CAPSULE PO SCH; -METOCLOPRAMIDE 10 MG TABLET ONE; +SCOPOLAMINE 1 PATCH PATCH TOPICAL SCH
--- NOTE | 2019-02-10 11:47 | General Surgery Progress Note ---
Subjective Patient reports: feels better, still having pain, pain is less, tolerating liquids well, flatus, diarrhea, nausea, afebrile Narrative: Note initiated : 02/10/19 at 11:45 am Service Date, if different from initiated Date: [] Patient: Gloria Sharp 34 y/o F admitted on 02/08/19 for Gastroenteritis . Chief Complaint: [patient is doing well. She has some nausea but no vomiting. She still has diarrhea and had 4 diarrheal stools today. She has been afebrile. She complains of hunger.] Objective Temp Pulse Resp BP Pulse Ox 98.1 F 67 18 135/83 95 02/10/19 08:00 02/10/19 08:00 02/10/19 08:00 02/10/19 08:00 02/10/19 08:00 - Additional Data Intake & Output - Last 24 hours: Intake & Output 02/08/19 02/09/19 02/10/19 02/11/19 05:59 05:59 05:59 05:59 Intake Total 5560 3410 3340 Output Total 700 700 Balance 5560 2710 2640 Weight 242 lb 245 lb - General physical appearance well developed, well nourished, no distress - Eyes PERRL - ENT normal pinna, normal nares, normal mucosa, no hearing loss, no congestion - Neck no masses, no bruits, trachea midline, no lymphadenopathy, no venous distension - Respiratory normal expansion, normal respiratory effort, clear to auscultation - Cardiovascular Cardiovascular exam: Present: normal rate and rhythm, RRR, +S1, +S2. Absent: JVD, tachycardia - Abdomen tender (mild tenderness in right lower quadrant to deep palpation; good active bowel sounds; no mass), bowel sounds (present), surgical scars (none), masses (none) - Integumentary no rash, no growths, no abnormal pigmentation - Neurologic normal coordination, normal sensation - Musculoskeletal normal gait, normal posture - Psychiatric oriented to time, oriented to person, oriented to place, speech is normal, memory intact - Labs 02/08/19 10:07 02/08/19 10:07 Assessment and Plan (1) Nausea and vomiting in adult Status: Acute Assessment and plan: Scopolamine transdermal every 72 hours Trial of soft diet Current Visit: Yes (2) Chronic generalized abdominal pain Status: Acute Assessment and plan: Dicyclomine 20 mg 3 times daily Stool for C. difficile and white blood cells Current Visit: Yes - Time Spent With Patient Total time spent is greater than 50% in coordination of care (as documented) at patient's floor/unit and/or counseling patient:
[2019-02-10] MEDS: PROMETHAZINE 25 MG/ML VIAL IV PRN (19:34)
[2019-02-11] MEDS: 0.9 % SODIUM CHLORIDE 1,000 ML IV SCH ×2 (02:14→09:32)
[2019-02-11] MEDS: 0.9 % SODIUM CHLORIDE 10 ML SYRINGE IV SCH ×2 (04:23→13:53)
[2019-02-11 05:33] LABS: Basophils # (Auto) 0 K/mcL (0.0-0.3); Basophils % (Auto) 0.2 % (0.0-2.0); Eosinophils # (Auto) 0.1 K/mcL (0.0-0.7); Eosinophils % (Auto) 0.8 % (0.0-7.0); Granulocytes % (Auto) 66.3 % (38.0-78.0); Hematocrit 38.8 % (36.0-48.0); Lymphocytes # (Auto) 2.8 K/mcL (1.5-4.8); Lymphocytes % (Auto) 27.1 % (15.5-49.0); Mean Cell Volume 92.9 fL (80.0-100.0); Mean Corpuscular HGB Conc 33.6 g/dL (31.0-36.0); Mean Platelet Volume 10.1 fL (7.4-10.4); Monocytes # (Auto) 0.6 K/mcL (0.1-0.9); Monocytes % (Auto) 5.6 % (1.0-12.0); Platelet Count 195 K/mcL (140-440); RBC 4.17 M/mcL (4.00-5.20); Red Cell Distribution Width 13.6 % (11.5-14.5); WBC 10.3 K/mcL (4.5-11.0)
[2019-02-11 06:41] LABS: ALT/SGPT 9 U/l (0-40); AST/SGOT 13 U/l (0-37); Albumin 3.4 gm/dL (3.2-5.2); Albumin/Globulin Ratio 1.3 (1.0-2.3); Alkaline Phosphatase 75 U/L (39-117); Bilirubin,Direct < 0.2 mg/dL (0.0-0.3); Bilirubin,Total 0.4 mg/dL (0.0-1.0); Blood Urea Nitrogen 5 mg/dl (6-20); Calcium 8.4 mg/dl (8.6-10.4); Carbon Dioxide 20 mmol/L (22-30); Chloride 104 mmol/L (96-108); Globulin 2.7 gm/dL (2.2-3.7); Glomerular Filtration Rate 120; Glucose 99 mg/dL (70-105); Lactate Dehydrogenase 188 U/L (94-250); Magnesium 1.7 mg/dL (1.6-2.5); Phosphorous 3.7 mg/dL (2.7-4.5); Potassium 3.5 mmol/L (3.3-5.1); Sodium 137 mmol/L (133-145); Triglycerides 176 mg/dl (<150); Uric Acid 5.5 mg/dL (2.5-8.0)
[2019-02-11] MEDS: PANTOPRAZOLE 40 MG TABLET PO SCH (07:05)
[2019-02-11] MEDS: DICYCLOMINE 20 MG TABLET PO SCH ×2 (08:57→12:22)
--- NOTE | 2019-02-11 15:31 | Discharge Summary ---
Providers - Providers Patient information: Note initiated : 02/11/19 at 3:28 pm Service Date, if different from initiated Date: [] Patient: Gloria Sharp 34 y/o F admitted on 02/10/19 for Gastroenteritis . Chief Complaint: [] Date of admission: 02/08/19 Discharge date: 02/11/19 Attending physician: Eros Young Hospitalization Hospital course: , 34-year-old female who is status post coppock, appendectomy for residual appendiceal inflammation.. She had surgery on . She was doing well until 2009, she developed nausea, vomiting. She was seen in the emergency room. CT of the abdomen was done which was normal. She was treated with IV hydration and antiemetics and discharged. Her symptoms recurred and she had persistent nausea with vomiting. She was unable to keep down any medications or liquids. Her white blood count increased to 13,000. Patient was seen in the office and admitted for suspected gastroenteritis. She was treated with IV hydration, anti-medics, dicyclomine and PPIs. Patient gradually improved. Her white blood count reduced to normal. Today, she has no discomfort. She has not had nausea or vomiting. She is having regular formed bowel movement. Patient is stable and is discharged home on promethazine and dicyclomine. Discharge diagnosis: gastroenteritis Reason for admission: , abdominal pain, nausea, vomiting Procedures: None Pertinent studies/significant findings: None Complications: None Exam Temp Pulse Resp BP Pulse Ox 97.6 F 72 16 129/86 94 02/11/19 15:14 02/11/19 15:14 02/11/19 15:14 02/11/19 15:14 02/11/19 15:14 - General physical appearance well developed, well nourished, no distress - Eyes PERRL, normal ocular movement - ENT normal pinna, normal nares, normal mucosa, no hearing loss, no congestion - Head Head exam IM: Present: atraumatic, normocephalic - Neck no masses, no bruits, trachea midline, no lymphadenopathy, no venous distension - Cardiovascular Cardiovascular exam IM: Present: normal rate and rhythm - Respiratory normal expansion, normal respiratory effort, clear to percussion, clear to auscultation - Abdomen Abdomen: Present: soft, non tender (no tenderness of the hypogastrium or lower quadrants. Good active bowel sounds), bowel sounds Hernia: Present: none - Genitourinary Present: normal external genitalia - Integumentary Present: no rash, no growths, no abnormal pigmentation - Neurologic Present: normal coordination, normal sensation - Musculoskeletal Present: normal gait, normal posture - Psychiatric Present: oriented to time, oriented to person, oriented to place, speech is normal, memory intact Discharge Plan - Patient/Caregiver Discharge Instructions Activity: increase activity as tolerated Diet: Regular Diet Prescriptions: Dicyclomine 20 mg PO QID #30 tab Promethazine [Phenergan] 25 mg PO Q4HP PRN #30 tab MDD 4 PRN Reason: Nausea And Vomiting - Follow up Plan Disposition: Home, Self-Care Prognosis: Good Rehab Potential: Good I certify that the patient requires SNF services.: No Overall status at discharge: patient is progressing back to baseline Pending Studies Resuscitation Status Full Code Diet GI Soft/Transitional Start FriFeb 10 1153 Dicyclomine HCl (Dicyclomine) 20 mg PO QID WENDY Last Admin: 02/11/19 12:22 Dose: 20 mg Documented by: [facility] Admin: 02/11/19 08:57 Dose: 20 mg Documented by: [facility] Admin: 02/10/19 21:13 Dose: 20 mg Documented by: Admin: 02/10/19 17:08 Dose: 20 mg Documented by: [facility] Admin: 02/10/19 13:04 Dose: 20 mg Documented by: [facility] Admin: 02/10/19 09:05 Dose: 20 mg Documented by: [facility] Admin: 02/09/19 21:11 Dose: 20 mg Documented by: Admin: 02/09/19 16:56 Dose: 20 mg Documented by: [email or web address] Admin: 02/09/19 13:24 Dose: 20 mg Documented by: [email or web address] Fentanyl (Sublimaze) 25 mcg IV Q2HP PRN PRN Reason: PAIN LEVEL > 6 Last Admin: 02/10/19 23:40 Dose: 25 mcg Documented by: Admin: 02/10/19 17:52 Dose: 25 mcg Documented by: Ivonne Admin: 02/10/19 13:56 Dose: 25 mcg Documented by: [email or web address] Admin: 02/10/19 03:11 Dose: 25 mcg Documented by: Admin: 02/09/19 21:11 Dose: 25 mcg Documented by: Admin: 02/09/19 16:30 Dose: 25 mcg Documented by: [id number] Admin: 02/09/19 13:23 Dose: 25 mcg Documented by: QUYEN Sodium Chloride (Sodium Chloride 0.9%) 1,000 mls @ 100 mls/hr IV .Q10H [facility] Last Admin: 02/11/19 09:32 Dose: 100 mls/hr Documented by: Infusion: 02/11/19 07:53 Dose: 100 mls/hr Documented by: Admin: 02/11/19 02:14 Dose: Not Given Documented by: Admin: 02/10/19 21:53 Dose: 100 mls/hr Documented by: Admin: 02/10/19 17:13 Dose: Not Given Documented by: Infusion: 02/10/19 09:11 Dose: 0 mls/hr Documented by: [facility] Admin: 02/10/19 07:27 Dose: 100 mls/hr Documented by: Infusion: 02/10/19 07:10 Dose: 100 mls/hr Documented by: [facility] Admin: 02/10/19 07:05 Dose: Not Given Documented by: [facility] Admin: 02/09/19 21:10 Dose: 100 mls/hr Documented by: Infusion: 02/09/19 19:37 Dose: 100 mls/hr Documented by: Admin: 02/09/19 09:37 Dose: 100 mls/hr Documented by: Infusion: 02/09/19 09:33 Dose: 100 mls/hr Documented by: [email or web address] Admin: 02/08/19 23:33 Dose: 100 mls/hr Documented by: RY Pantoprazole Sodium (Protonix) 40 mg PO BIDAC [facility] Last Admin: 02/11/19 07:05 Dose: 40 mg Documented by: Admin: 02/10/19 17:08 Dose: 40 mg Documented by: F Admin: 02/10/19 07:26 Dose: 40 mg Documented by: Admin: 02/09/19 16:56 Dose: 40 mg Documented by: [id number] Admin: 02/09/19 06:57 Dose: 40 mg Documented by: [email or web address] Admin: 02/08/19 17:13 Dose: 40 mg Documented by: HEBER Promethazine HCl (Phenergan) 12.5 mg IV Q4HP PRN PRN Reason: Nausea And Vomiting Last Admin: 02/10/19 19:34 Dose: 12.5 mg Documented by: Admin: 02/09/19 21:13 Dose: 12.5 mg Documented by: Admin: 02/09/19 16:30 Dose: 12.5 mg Documented by: [email or web address] Admin: 02/09/19 12:00 Dose: 12.5 mg Documented by: Admin: 02/08/19 21:17 Dose: 12.5 mg Documented by: Admin: 02/08/19 17:37 Dose: 12.5 mg Documented by: Admin: 02/08/19 10:45 Dose: 12.5 mg Documented by: HEBER Scopolamine (Transderm-Scop) 1 patch TOPICAL Q72H [facility] Last Admin: 02/09/19 16:56 Dose: 1 patch Documented by: QUYEN Sodium Chloride (Saline Flush) 10 ml IV Q8 [facility] Last Admin: 02/11/19 13:53 Dose: Not Given Documented by: Admin: 02/11/19 04:23 Dose: Not Given Documented by: Admin: 02/10/19 21:14 Dose: Not Given Documented by: Admin: 02/10/19 13:05 Dose: 10 ml Documented by: Admin: 02/10/19 05:42 Dose: Not Given Documented by: Admin: 02/09/19 23:16 Dose: Not Given Documented by: Admin: 02/09/19 12:27 Dose: Not Given Documented by: [email or web address] Admin: 02/09/19 05:56 Dose: Not Given Documented by: Admin: 02/08/19 22:39 Dose: Not Given Documented by: Admin: 02/08/19 14:45 Dose: Not Given Documented by: HEBER Shift Summary 02/11/19 03:55 Shift Summary by Estefany Faith. Gail&Ox4. Medicated for pain with 25mcg IV Fentanyl once approx. 0045. Warm pack also effective for reducing abdominal discomfort per pt. report. Phenergan 12.5mg IV once for nausea. Tolerated Jello afterwards. IV to R FA is SL. No bowel movements tonight. Uses call light to make needs known. Initialized on 02/11/19 03:55 - END OF NOTE
== END 2019-02-11 15:55 | disposition home or self-care (01) | DRG 392 ==
LOC: MEDSUR
PROVIDERS: ADMIT Family Medicine Adult Medicine; ATTEND Family Medicine Adult Medicine